=== PATIENT | male | born 1955 | race Caucasian/White ===

== ENCOUNTER 2017-04-11 09:26 | Inpatient (IN) | payer OTHER ==
[2017-04-11] VITALS (9 sets, daily range): BP systolic 108–183; BP diastolic 74–108; PULSE 65–68; RESP 18–19; TEMP 98.5; Ht 162.6 cm; Wt 85.0 kg
[~2017-04-11] VITALS: Ht 162.6 cm; Wt 85.0 kg
[2017-04-11] MEDS ORDERED: ASPIRIN 81 MG TAB PO ONE (10:00)
[2017-04-11] MEDS ORDERED: KETOROLAC 15 MG INJ IV STA (10:00)
--- NOTE | 2017-04-11 10:15 | ERA ---
ER Documentation Chief Complaint Date/Time DATE: 04/11/17 TIME: 10:09 Chief Complaint Pt BIB RA 81 with c/o CP since 0700. HPI 61-year-old man presents with substernal chest pain beginning in the morning lasting for about an hour, resolving spontaneously and then returning while at his doctor's office. Patient did have an SD last year and underwent PCI with stent placement and states the pain today felt similar to previous episodes. He does use nitroglycerin and aspirin at home and with nitroglycerin use today his symptoms improved. He denies dizziness or loss of consciousness, no shortness of breath, no calf or leg swelling, no fevers or chills, no cough. He was referred here by his PMD for evaluation. ROS All systems reviewed and are negative except as per history of present illness. Allergies Allergies: Coded Allergies: No Known Allergy (Unverified , 04/11/17) PMhx/Soc History of SD status post PCI with stent placement 1 year ago, hypertension History of Surgery: No Anesthesia Reaction: No Hx Neurological Disorder: No Hx Respiratory Disorders: No Hx Cardiac Disorders: Yes (CAD-Stent) Hx Psychiatric Problems: No Hx Miscellaneous Medical Probl: Yes (HTN, DM type 2, Cholesterol) Hx Alcohol Use: No Hx Substance Use: No Hx Tobacco Use: No Smoking Status: Former smoker FmHx Family History: No diabetes Physical Exam Vitals Vital Signs Date Time Temp Pulse Resp B/P Pulse Ox O2 Delivery O2 Flow Rate FiO2 04/11/17 09:36 98.5 91 16 129/98 100 Physical Exam GENERAL: Well-developed, well-nourished, well-hydrated, in no apparent distress , looks nontoxic in appearance HEENT: Moist mucous membranes, pink conjunctiva, no cervical spine tenderness or step-off deformities, no goiter, no jaundice or icterus, extraocular movements intact without pain. No submandibular induration, and no pharyngeal erythema NEURO: Alert and oriented 3, cranial nerves II through XII intact bilaterally, pupils equal round reactive to light, no focal deficits or facial asymmetry, sensation intact distally Strength 5/5 in upper and lower extremities bilaterally CARDIAC: Regular rate and rhythm, no murmurs rubs or gallops LUNGS: Clear bilaterally no wheezing crackles or stridor ABDOMEN: Soft nontender, no guarding, no rigidity, no rebound, no psoas sign no obturator sign. Normoactive bowel sounds SKIN: Warm and dry to touch, no abrasions, contusions, or hematomas, no lacerations, no ecchymosis, no target lesions, and without ulcers EXTREMITIES: No clubbing cyanosis or edema, calves are bilaterally symmetrical, no Homans sign, no popliteal cord sign. Distal pulses equal and bilateral PSYCH: Normal affect without agitation or irritability Result Diagram: 04/11/17 0950 Results 24 hrs Laboratory Tests Test 04/11/17 09:50 White Blood Count 6.310^3/ul Red Blood Count 4.7210^6/ul Hemoglobin 13.4g/dl Hematocrit 40.0% Mean Corpuscular Volume 84.7fl Mean Corpuscular Hemoglobin 28.4pg Mean Corpuscular Hemoglobin Concent 33.5g/dl Red Cell Distribution Width 12.4% Platelet Count 01273^3/UL Mean Platelet Volume 9.4fl Neutrophils % 59.5% Lymphocytes % 29.6% Monocytes % 8.4% Eosinophils % 1.6% Basophils % 0.6% Nucleated Red Blood Cells % 0.0/100WBC Neutrophils # 3.710^3/ul Lymphocytes # 1.910^3/ul Monocytes # 0.510^3/ul Eosinophils # 0.110^3/ul Basophils # 0.010^3/ul Nucleated Red Blood Cells # 0.010^3/ul Current Medications Medications (Trade) Dose Ordered Sig/Nereyda Route PRN Reason Start Time Stop Time Status Last Admin Dose Admin Ketorolac Tromethamine (Toradol) 15 mg ONCE STAT IV 04/11/17 10:00 04/11/17 10:01 DC 04/11/17 10:12 Aspirin (Aspirin) 324 mg ONCE ONCE PO 04/11/17 10:00 04/11/17 10:01 DC 04/11/17 10:12 Procedures/MDM IV line was established patient was placed on gynaecological oncologist rhythm strip revealed a sinus rhythm at about 80 bpm with upright P and T waves. Patient was afebrile. EKG performed, read by me revealed a normal sinus rhythm 87 bpm, normal axis, narrow QRS complex, poor R waves in V2 and V3 consistent with old SD, no acute ST changes. Chest X-ray 1V Interpreted by me: Soft Tissue: No acute abnormalities Bones: No acute abnormalities Mediastinum/Cardiac Silhouette/Lungs: No acute abnormalities I administered Toradol 15 mg IV 1 aspirin 324 mg p.o. for cardioprotective measures. CBC and electrolytes were normal, liver function tests were normal, troponin was negative. Patient has a strong cardiac history and given his symptoms today will be admitted to telemetry setting for continued medical management cardiology consultation. Departure Diagnosis: Primary Impression: Chest pain Additional Impression: Hypertension Condition: CARL Tam MD Apr 11, 2017 10:15
[2017-04-11 10:17] LABS: BASOPHILS % 0.6 % (0.0-2.0); EOSINOPHILS # 0.1 10^3/ul (0.0-0.5); EOSINOPHILS % 1.6 % (0.0-7.0); HEMOGLOBIN 13.4 g/dl (14.0-18.0); LYMPHOCYTES # 1.9 10^3/ul (0.8-2.9); LYMPHOCYTES % 29.6 % (15.0-51.0); MEAN CORPUSCULAR HEMOGLOBIN 28.4 pg (29.0-33.0); MEAN CORPUSCULAR HGB CONC 33.5 g/dl (32.0-37.0); MEAN CORPUSCULAR VOLUME 84.7 fl (82.0-101.0); MEAN PLATELET VOLUME 9.4 fl (7.4-10.4); MONOCYTE # 0.5 10^3/ul (0.3-0.9); MONOCYTES % 8.4 % (0.0-11.0); NEUTROPHIL # 3.7 10^3/ul (1.6-7.5); NEUTROPHILS % 59.5 % (39.0-77.0); PLATELET COUNT 316 10^3/UL (140-415); RED BLOOD COUNT 4.72 10^6/ul (4.70-6.10); RED CELL DISTRIBUTION WIDTH 12.4 % (11.5-14.5); WHITE BLOOD COUNT 6.3 10^3/ul (4.8-10.8)
--- NOTE | 2017-04-11 10:24 | RADRPT ---
PROCEDURE: XR Chest. CLINICAL INDICATION: chest pain TECHNIQUE: Single frontal view of the chest was obtained COMPARISON: None FINDINGS: The heart and mediastinum are within normal limits. The lungs are clear. There is no pleural effusion or pneumothorax. RPTAT: AA IMPRESSION: No acute disease. .Devon Perry MD, Date Time Electronically viewed and signed by .Devon Perry MD, on 04/11/2017 10:23 .S/
[2017-04-11 10:42] LABS: ALANINE AMINOTRANSFERASE 29 IU/L (13-69); ALBUMIN 4.4 g/dl (3.3-4.9); ALBUMIN/GLOBULIN RATIO 1.62; ALKALINE PHOSPHATASE 108 IU/L (42-121); ANION GAP 16 (8-16); ASPARTATE AMINO TRANSFERASE 20 IU/L (15-46); BILIRUBIN,INDIRECT 0.1 mg/dl (0-1.1); BILIRUBIN,TOTAL 0.1 mg/dl (0.2-1.3); BLOOD UREA NITROGEN 24 mg/dl (7-20); CALCIUM 9.6 mg/dl (8.4-10.2); CARBON DIOXIDE 24 mmol/L (21-31); CHLORIDE 103 mmol/L (97-110); CREATININE 0.86 mg/dl (0.61-1.24); GLUCOSE 266 mg/dl (70-220); SODIUM 139 mmol/L (135-144); TOTAL PROTEIN 7.1 g/dl (6.1-8.1)
[2017-04-11 11:04] LABS: TROPONIN-I < 0.012 ng/ml (0.00-0.12)
[2017-04-11] MEDS ORDERED: METF-480 PO (12:20)
[2017-04-11] MEDS ORDERED: BENA40TA41 PO (12:20)
[2017-04-11] MEDS ORDERED: AMIT10TA6 PO (12:20)
[2017-04-11] MEDS ORDERED: CLOP75TA27 PO (12:20)
[2017-04-11] MEDS ORDERED: PANT40TA4 PO (12:21)
[2017-04-11] MEDS ORDERED: ATOR40TA68 PO (12:21)
[2017-04-11] MEDS ORDERED: HYDR12.58 PO (12:21)
[2017-04-11] MEDS ORDERED: CARV25TA97 PO (12:22)
[2017-04-11] MEDS ORDERED: GLIM4TAB PO (12:22)
[2017-04-11] MEDS ORDERED: INSU100C SQ (12:22)
[2017-04-11] MEDS ORDERED: LANT3I SC (12:23)
[2017-04-11] MEDS ORDERED: GLUCOSE GEL 15 GRAM TUBE PO PRN ×2 (14:00)
[2017-04-11] MEDS ORDERED: DOCUSATE SODIUM 100 MG CAP PO PRN (14:00)
[2017-04-11] MEDS ORDERED: GLUCAGON 1 MG INJ IM PRN (14:00)
[2017-04-11] MEDS ORDERED: ACETAMINOPHEN 325 MG TAB PO PRN (14:00)
[2017-04-11] MEDS ORDERED: GLUCOSE GEL 15 GRAM TUBE BUCCAL PRN (14:00)
[2017-04-11] MEDS ORDERED: DEXTROSE 50% 50 ML SYRINGE IV PRN ×2 (14:00)
[2017-04-11] MEDS ORDERED: morphine 2 MG INJ IV PRN (14:00)
[2017-04-11] MEDS ORDERED: ACETAMINOPHEN 650 MG SUPP PR PRN (14:00)
[2017-04-11] MEDS ORDERED: NACL 0.9% 3 ML SYG IV SCH (14:00)
[2017-04-11] MEDS ORDERED: ONDANSETRON 4 MG INJ IV PRN (14:00)
[2017-04-11] MEDS ORDERED: hydrALAzine 20 MG INJ IV PRN (14:00)
--- NOTE | 2017-04-11 14:06 | HP ---
Date/Time of Note Date/Time of Note DATE: 04/11/17 TIME: 13:58 Assessment/Plan VTE Prophylaxis VTE Prophylaxis Intervention: LMWH Lines/Catheters IV Catheter Type (from Nrs): Saline Lock Assessment/Plan Assessment/Plan 61-year-old male with a history of coronary artery disease ,status post PCI with stent<1 yo, diabetes, hypertension, who presented to the emergency room for evaluation of left-sided chest pain worsens with exertion. 1. Left-sided chest pain, Exertional , rule out acute coronary syndrome. -Telemetry observation, serial troponins 3, repeat 12-lead EKG and 2D cardiogram. -Aspirin 81 mg, nitro SL PRN, and morphine PRN -Cardiology consult as patient is at high risk. 2. Coronary artery disease, status post PCI with stent placed less than 1 year ago.` -Resume home medications including aspirin, Plavix, statin and antihypertensives. 3. Essential hypertension. -Resume ACEI/BB/HCTZ 4. Dislipidemia. -Resume statin 5. DMII -Check A1c. -Accu-Cheks/ISS/Lantus, titrate as indicated. -Hold oral agents at this time. 6.GERD: -Resume PPI DVT prophylaxis: Lovenox PUD prophylaxis: Protonix PLAN: Monitor patient for recurrence of chest pain if any. Monitor EKG. Patient will be started on a carb controlled diet. Follow-up with LABS. Follow -up with cardiology recommendations. Rest of the management depend on clinical course, further studies and input from [facility] consultant. Approximately 60 minutes was spent on this history and physical. Patient was seen in collaboration with . HPI/ROS Admit Date/Time Admit Date/Time Apr 11, 2017 at 11:51 Hx of Present Illness This is a 61-year-old male with a past medical history of myocardial infarction, PCI with stent placed less than 1 year ago, type 2 diabetes, coronary artery disease, dyslipidemia, hypertension, who presented to the emergency room with complaints of intermittent left-sided chest pain that started 4 days ago. His pain gets aggravated by exertion. There is no radiation of his pain. Patient denied palpitation, shortness of breath, dizziness, nausea, vomiting, abdominal discomfort, cough or other constitutional symptoms. Patient was seen by his primary care doctor and was asked to go to the emergency room. His initial troponin was negative. CBC and BMP within acceptable range. Vital signs within normal limits. A 12-lead EKG with sinus rhythm and nonspecific ST/ T-wave changes. There was no acute ST elevation or T-wave changes. Chest x- ray without any acute cardiopulmonary disease. Patient was given aspirin 324 mg and Toradol 50 mg with some improvement in his pain and was admitted for further evaluation. ROS A 12 point review of system was assessed and is negative other than what is mentioned in HPI. PMH/Family/Social Past Medical History See HPI Past Surgical History See HPI Social History Former smoker who quit 1 year ago. Denies any history of alcohol or illicit drug use. Smoking Status: Former smoker Exam/Review of Systems Vital Signs Vitals Vital Signs Date Time Temp Pulse Resp B/P Pulse Ox O2 Delivery O2 Flow Rate FiO2 04/11/17 12:24 71 20 143/94 99 04/11/17 11:58 98.5 Room Air Exam Exam General: Well developed,adequately built male, not in any acute distress . HEENT: Normocephalic, Atraumatic, No laceration or hematoma; Eyes: PEERL, Conjunctiva clear, Anicteric sclera Neck: Supple without any lymphadenopathy, nontender, no JVD, no carotid bruits, trachea midline, no thyromegaly Cardiac: S1, S2 auscultated, regular rhythm and rate, no mumurs or gallop Pulmonary: Normal respiratory effort. Chest clear to auscultation bilaterally, no adventitious breath sounds GI: Abdomen normal to inspection. Soft, non tender, non- distended, no masses, no rebound tenderness or guarding. Bowel sounds active on all four quadrants Genitourinary: Deferred Extremities: No cyanosis, clubbing, or edema. Pulses [2+] bilaterally. Full ROM on all four extremities. No focal weakness appreciated. Neurologic: Alert to person, place, time, and situation. Affect appropriate, intact sensation. Skin: Clean,dry, and intact. No ecchymosis, no rashes, or lesions Labs Result Diagram: 04/11/17 0950 04/11/17 0950 ANUPAMA SANTAMARIA NP Apr 11, 2017 14:06
[2017-04-11 14:31] LABS: CREATINE KINASE 70 IU/L (23-200)
[2017-04-11 14:44] LABS: CK-MB 0.72 ng/ml (0.0-2.4); TROPONIN-I < 0.012 ng/ml (0.00-0.12)
[2017-04-11] MEDS ORDERED: ASPI-664 PO (15:37)
[2017-04-11] MEDS: INSULIN ASPART [NOVOLOG] 3 ML PEN SC SCH ×2 (17:39→21:00)
--- NOTE | 2017-04-11 19:12 | CONS ---
Date/Time of Note Date/Time of Note DATE: 04/11/17 TIME: 19:11 Assessment/Plan Assessment/Plan Chief Complaint/Hosp Course 1. ACS/ unstable angina 2. HTN 3. DM 4. Dyslipidemia 5. hx CAD 6. HX PCI 7. leg pain: possible PAD REC: ASA/ PLAVIX CONT COREG MAMIE DM control echo tele R/O [place] LHC/ steph possible PCI tomorrow. R./B/A D/W pt and grandson. consent was obtain. will try to get old records THANK YOU. THONG HUERTA MD [facility] Problems: Consultation Date/Type/Reason Admit Date/Time Apr 11, 2017 at 11:51 Date of Consultation: Apr 11, 2017 Type of Consultation: CARDIOLOGY Reason for Consultation CHEST PAIN/ ACS Referring Provider: ANUAPMA SANTAMARIA NP Hx of Present Illness CC: CHEST PAIN HPI: THANK YOU FOR THIS REFERRAL this is a pleasant 61 year old man with history of DM HTN Dyslipidemia , CAD, S/P WA & PCI a year ago who presented with new onset of anterior/ left sided chest pain x 4 days. pain is intermittent, similar to his previous [place] pain and appears to be getting worse with exertion. pt's pain got worse today after walking to his clinic d/w grandson. no chest pain now allergy NKDA Meds reviewed. socia; quit smoking a year ago family hx: denies any early CAD PMH: as above. ROS: + Leg pain. otherwise as above Social History Smoking Status: Former smoker Exam/Review of Systems Vital Signs Vitals Vital Signs Date Time Temp Pulse Resp B/P Pulse Ox O2 Delivery O2 Flow Rate FiO2 04/11/17 16:40 149/86 04/11/17 16:17 65 04/11/17 15:20 97.8 18 100 04/11/17 11:58 Room Air Exam GEN no acute distress HEENT: NCAT. PER NECK NO JVD CV RRR NO m./g/r PULM: CTA B/L no wheezing GI obese soft NT ND EXT Trace LE Edema neuro [id number] NONFOCAL Psych calm and pleasant ECG NSR ant infarct CXR reviewed. Results Result Diagram: 04/11/17 0950 04/11/17 0950 Results 24 hrs Laboratory Tests Test 04/11/17 09:50 04/11/17 14:06 04/11/17 17:39 White Blood Count 6.3 Red Blood Count 4.72 Hemoglobin 13.4 L Hematocrit 40.0 L Mean Corpuscular Volume 84.7 Mean Corpuscular Hemoglobin 28.4 L Mean Corpuscular Hemoglobin Concent 33.5 Red Cell Distribution Width 12.4 Platelet Count 316 Mean Platelet Volume 9.4 Neutrophils % 59.5 Lymphocytes % 29.6 Monocytes % 8.4 Eosinophils % 1.6 Basophils % 0.6 Nucleated Red Blood Cells % 0.0 Neutrophils # 3.7 Lymphocytes # 1.9 Monocytes # 0.5 Eosinophils # 0.1 Basophils # 0.0 Nucleated Red Blood Cells # 0.0 Sodium Level 139 Potassium Level 4.0 Chloride Level 103 Carbon Dioxide Level 24 Anion Gap 16 Blood Urea Nitrogen 24 H Creatinine 0.86 Glucose Level 266 H Calcium Level 9.6 Total Bilirubin 0.1 L Direct Bilirubin 0.00 Indirect Bilirubin 0.1 Aspartate Amino Transf (AST/SGOT) 20 Alanine Aminotransferase (ALT/SGPT) 29 Alkaline Phosphatase 108 Troponin I < 0.012 < 0.012 Total Protein 7.1 Albumin 4.4 Globulin 2.70 Albumin/Globulin Ratio 1.62 Lipase 36 Creatine Kinase 70 Creatine Kinase Index 1.0 Creatinine Kinase MB (Mass) 0.72 Bedside Glucose 136 Medications Medications Current Medications Ondansetron HCl (Zofran Inj) 4 mg Q6H PRN IV NAUSEA AND/OR VOMITING; Start at 14:00 Acetaminophen (Tylenol Tab) 650 mg Q6H PRN PO PAIN LEVEL 1-3 OR FEVER; Start at 14:00 Acetaminophen (Tylenol Supp) 650 mg Q6H PRN IN PAIN LEVEL 1-3 OR FEVER; Start 04/11/17 at 14:00 Morphine Sulfate (morphine) 2 mg Q4H PRN IV SEVERE PAIN LEVEL 7-10; Start 04/11 at 14:00 Docusate Sodium (Colace) 100 mg Q12H PRN PO CONSTIPATION; Start 04/11/17 at 14: 00 Enoxaparin Sodium (Lovenox) 40 mg DAILY SC ; Start 04/12/17 at 09:00 Atorvastatin Calcium (Lipitor) 40 mg QHS PO ; Start 04/11/17 at 21:00 Benazepril HCl (Lotensin) 40 mg DAILY PO ; Start 04/12/17 at 09:00 Carvedilol (Coreg) 25 mg BID PO ; Start 04/11/17 at 21:00 Clopidogrel Bisulfate (plaVIX) 75 mg DAILY PO ; Start 04/12/17 at 09:00 Hydrochlorothiazide (Hydrochlorothiazide) 12.5 mg DAILY PO ; Start 04/12/17 at 09:00 Diagnostic Test (Pha) (Accu-Chek) 1 ea 02 XX ; Start 04/12/17 at 02:00 Insulin Glargine (Lantus) 21 unit DAILY@08 SC ; Start 04/12/17 at 08:00 Miscellaneous Information 1 ea NOTE XX ; Start 04/11/17 at 14:00 Glucose (Glutose) 15 gm Q15M PRN PO DECREASED GLUCOSE; Start 04/11/17 at 14:00 Glucose (Glutose) 22.5 gm Q15M PRN PO DECREASED GLUCOSE; Start 04/11/17 at 14: 00 Dextrose (D50w Syringe) 25 ml Q15M PRN IV DECREASED GLUCOSE; Start 04/11/17 at 14:00 Dextrose (D50w Syringe) 50 ml Q15M PRN IV DECREASED GLUCOSE; Start 04/11/17 at 14:00 Glucagon (Glucagen) 1 mg Q15M PRN IM DECREASED GLUCOSE; Start 04/11/17 at 14:00 Glucose (Glutose) 15 gm Q15M PRN BUCCAL DECREASED GLUCOSE; Start 04/11/17 at 14 :00 Hydralazine HCl (Apresoline) 10 mg Q6H PRN IV SBP>170; Start 04/11/17 at 14:00 Aspirin (Halfprin) 81 mg DAILY PO ; Start 04/12/17 at 09:00 THONG HUERTA MD Apr 11, 2017 19:12
[2017-04-11] MEDS: ENOXAPARIN 40 MG/0.4 ML SYG SC SCH (19:33)
[2017-04-11 20:18] LABS: CREATINE KINASE 72 IU/L (23-200)
--- NOTE | 2017-04-11 20:27 | RADRPT ---
Echocardiogram Report Patient Name: ELSY GOMEZ Gender: Male Date: 1955 Study Date: 11-Apr-2017 Deposit Refund Clerk: Mustapha Mancilla [facility] Location: [facility] Ref. Physician: ANUPAMA SANTAMARIA Quality: Good Procedures: Transthoracic echocardiogram with complete 2D, M-Mode, and doppler examination. Indications: Chest Pain. 2D/M Mode Doppler Measurement Value Normal Ranges Measurement Value Normal Ranges LVIDd 2D 4.7 3.5 - 5.6 cm AV Peak Karl 1.2 m/sec LVIDs 2D 2.5 2.1 - 4.1 cm AV Peak PG 6.0 mmHg LVPWd 2D 1.2 0.6 - 1.1 cm LVOT Peak Karl 0.9 m/sec IVSd 2D 1.2 0.6 - 1.1 cm LVOT Peak PG 3.3 mmHg AoR Diam 2D 3.1 2.0 - 3.7 cm MV E Peak Karl 0.8 m/sec EDV 2D 103.2 cm3 MV A Peak Karl 0.9 m/sec ESV 2D 16.0 cm3 MV E/A 0.8 LA Dimen 2D 3.3 2.3 - 4.0 cm MV Decel Time 165 msec MV Decel [place] 5 MV E/A 0.8 TR Peak Karl 2.0 m/sec TR Peak PG 15.2 mmHg RVSP 18.0 mmHg Findings Left Ventricle: Lower limits of normal systolic function. Normal left ventricular cavity size. Mild concentric left ventricular hypertrophy. Ejection fraction is visually estimated at 50 %. Tissue Doppler/Mitral Doppler indices are consistent with impaired relaxation (Stage I diastolic dysfunction). Multiple segmental wall motion abnormalities. These segments of the LV are hypokinetic mid anterior segment, apical anterior segment and apical septum. Right Ventricle: Normal right ventricular size. Normal right ventricular systolic function. Left Atrium: The left atrium is normal in size. Right Atrium: The right atrium is normal in size. Mitral Valve: Mitral valve leaflets appear mildly thickened. Mild mitral annular calcification. Trace mitral regurgitation. Aortic Valve: Normal appearance of the aortic valve. No significant aortic stenosis or insufficiency. Tricuspid Valve: Normal appearance of the tricuspid valve. Estimated peak PA systolic pressure 18 mmHg. There is trace tricuspid regurgitation. Pulmonic Valve: Normal pulmonic valve appearance. Pericardium: Normal pericardium with no significant pericardial effusion. Aorta: Normal aortic root. IVC: Normal size and normal respiratory collapse consistent with normal right atrial pressure. Conclusions 1.Lower limits of normal systolic function. Normal left ventricular cavity size. Mild concentric left ventricular hypertrophy. Ejection fraction is visually estimated at 50 %. Tissue Doppler/Mitral Doppler indices are consistent with impaired relaxation (Stage I diastolic dysfunction). Multiple segmental wall motion abnormalities. These segments of the LV are hypokinetic mid anterior segment, apical anterior segment. and apical septum. 2.Mitral valve leaflets appear mildly thickened. Mild mitral annular calcification. Trace mitral regurgitation. 3.Normal appearance of the aortic valve. No significant aortic stenosis or insufficiency. 4.Normal appearance of the tricuspid valve. Estimated peak PA systolic pressure 18 mmHg. There is trace tricuspid regurgitation. Electronically Signed By: Jose Bazzi 11-Apr-2017 20:26:24 -0700 Patient Name: ELSY GOMEZ Study Date: 11-Apr-2017 [id number]
[2017-04-11 20:30] LABS: TROPONIN-I < 0.012 ng/ml (0.00-0.12)
[2017-04-11] MEDS: ATORVASTATIN 40 MG TAB PO SCH (21:14)
[2017-04-11] MEDS: ACCU-CHEK XX SCH (21:15)
[2017-04-12] VITALS (22 sets, daily range): BP systolic 120–164; BP diastolic 79–108; PULSE 64–84; RESP 7–20
[2017-04-12] MEDS ORDERED: ACCU-CHEK XX SCH (02:00)
[2017-04-12 08:20] LABS: BASOPHIL # 0.1 10^3/ul (0.0-0.1); EOSINOPHILS # 0.1 10^3/ul (0.0-0.5); EOSINOPHILS % 2.2 % (0.0-7.0); HEMATOCRIT 40.1 % (42.0-52.0); HEMOGLOBIN 13.7 g/dl (14.0-18.0); LYMPHOCYTES # 1.7 10^3/ul (0.8-2.9); LYMPHOCYTES % 34.1 % (15.0-51.0); MEAN CORPUSCULAR HEMOGLOBIN 29.3 pg (29.0-33.0); MEAN CORPUSCULAR HGB CONC 34.2 g/dl (32.0-37.0); MEAN CORPUSCULAR VOLUME 85.7 fl (82.0-101.0); MEAN PLATELET VOLUME 9.2 fl (7.4-10.4); MONOCYTE # 0.5 10^3/ul (0.3-0.9); MONOCYTES % 10.8 % (0.0-11.0); NEUTROPHIL # 2.5 10^3/ul (1.6-7.5); NEUTROPHILS % 51.7 % (39.0-77.0); PLATELET COUNT 315 10^3/UL (140-415); RED BLOOD COUNT 4.68 10^6/ul (4.70-6.10); RED CELL DISTRIBUTION WIDTH 12.3 % (11.5-14.5); WHITE BLOOD COUNT 4.9 10^3/ul (4.8-10.8)
[2017-04-12] MEDS: BENAZEPRIL 40 MG TAB PO SCH (08:27)
[2017-04-12] MEDS: ASPIRIN (EC) 81 MG TAB PO SCH (08:27)
[2017-04-12] MEDS: HYDROCHLOROTHIAZIDE 12.5 MG CAP PO SCH (08:28)
[2017-04-12] MEDS: INSULIN GLARGINE [LANtus] 3 ML PEN SC SCH (08:29)
[2017-04-12] MEDS: INSULIN ASPART [NOVOLOG] 3 ML PEN SC SCH ×6 (08:30→21:08)
[2017-04-12] MEDS: CLOPIDOGREL 75 MG TAB PO SCH (08:34)
[2017-04-12] MEDS: PANTOPRAZOLE (EC) 40 MG TAB PO SCH (08:34)
[2017-04-12 08:39] LABS: CREATINE KINASE 59 IU/L (23-200)
[2017-04-12 08:51] LABS: ALBUMIN 3.9 g/dl (3.3-4.9); ALBUMIN/GLOBULIN RATIO 1.62; BILIRUBIN,INDIRECT 0.4 mg/dl (0-1.1); BILIRUBIN,TOTAL 0.4 mg/dl (0.2-1.3); CALCIUM 9.3 mg/dl (8.4-10.2); CHOL/HDL RATIO 2.6 RATIO; CREATININE 0.89 mg/dl (0.61-1.24); MAGNESIUM 1.8 mg/dl (1.7-2.5); PHOSPHORUS 3.7 mg/dl (2.5-4.9); POTASSIUM 4.1 mmol/L (3.5-5.1); TOTAL PROTEIN 6.3 g/dl (6.1-8.1)
[2017-04-12 08:59] LABS: TROPONIN-I < 0.012 ng/ml (0.00-0.12)
[2017-04-12 09:00] LABS: CK-MB 0.58 ng/ml (0.0-2.4)
--- NOTE | 2017-04-12 11:03 | PN ---
Date/Time of Note Date/Time of Note DATE: 04/12/17 TIME: 10:57 Assessment/Plan VTE Prophylaxis VTE Prophylaxis Intervention: LMWH Lines/Catheters IV Catheter Type (from Nrs): Peripheral IV Urinary Cath still in place: No Assessment/Plan Chief Complaint/Hosp Course 61-year-old male with a history of coronary artery disease ,status post PCI with stent<1 yo, diabetes, hypertension, who presented to the emergency room for evaluation of left-sided chest pain worsens with exertion. 1. Left-sided chest pain, Exertional , rule out acute coronary syndrome.Trops/ EKG stable.Echo with EF 50% -Continue Aspirin 81 mg, nitro SL PRN, and morphine PRN -Plan for [facility] by Cardiology colleagues 2. Coronary artery disease, status post PCI with stent placed less than 1 year ago.` -on aspirin, Plavix, statin and antihypertensives. 3. Essential hypertension.Stable. -On ACEI/BB/HCTZ 4. Dislipidemia. -On statin 5. DMII-With hyperglycemia. -F/u A1c. -Start premeal Aspart 7unit TID, Continue Accu-Cheks/ISS/Lantus, titrate as indicated. -Continue to hold oral agents at this time. 6.GERD: -on PPI 7.Headache,mild-Likely 2/2 vasodilatory effect from meds. Tylenol PRN-Consider CT/MRI studies if no improvement. DVT prophylaxis: Lovenox PUD prophylaxis: Protonix PLAN:F/u with cards recommendations. Patient was seen in collaboration with . Problems: Subjective 24 Hr Interval Summary Free Text/Dictation Patient complaints of headache. No chest pain/SOB/Palpitation/Dizziness. Exam/Review of Systems Vital Signs Vitals Vital Signs Date Time Temp Pulse Resp B/P Pulse Ox O2 Delivery O2 Flow Rate FiO2 04/12/17 08:00 75 04/12/17 07:15 97.8 18 136/89 99 04/11/17 11:58 Room Air Intake and Output 04/11/17 04/11/17 04/12/17 15:00 23:00 07:00 Intake Total 420 ml 300 ml Balance 420 ml 300 ml Exam General: Well developed,adequately built male, not in any acute distress . HEENT: Normocephalic, Atraumatic, No laceration or hematoma; Eyes: PEERL, Conjunctiva clear, Anicteric sclera Neck: Supple without any lymphadenopathy, nontender, no JVD, no carotid bruits, trachea midline, no thyromegaly Cardiac: S1, S2 auscultated, regular rhythm and rate, no mumurs or gallop Pulmonary: Normal respiratory effort. Chest clear to auscultation bilaterally, no adventitious breath sounds GI: Abdomen normal to inspection. Soft, non tender, non- distended, no masses, no rebound tenderness or guarding. Bowel sounds active on all four quadrants Genitourinary: Deferred Extremities: No cyanosis, clubbing, or edema. Pulses [2+] bilaterally. Full ROM on all four extremities. No focal weakness appreciated. Neurologic: Alert to person, place, time, and situation. Affect appropriate, intact sensation. Skin: Clean,dry, and intact. No ecchymosis, no rashes, or lesions Results Result Diagram: 04/12/17 0722 04/12/17 0723 Results 24 hrs Laboratory Tests Test 04/11/17 14:06 04/11/17 17:39 04/11/17 19:49 04/11/17 21:08 Creatine Kinase 70 72 Creatine Kinase Index 1.0 1.0 Creatinine Kinase MB (Mass) 0.72 0.70 Troponin I < 0.012 < 0.012 Bedside Glucose 136 180 Test 04/12/17 07:22 04/12/17 07:23 04/12/17 07:58 White Blood Count 4.9 # Red Blood Count 4.68 L Hemoglobin 13.7 L Hematocrit 40.1 L Mean Corpuscular Volume 85.7 Mean Corpuscular Hemoglobin 29.3 Mean Corpuscular Hemoglobin Concent 34.2 Red Cell Distribution Width 12.3 Platelet Count 315 Mean Platelet Volume 9.2 Neutrophils % 51.7 Lymphocytes % 34.1 Monocytes % 10.8 Eosinophils % 2.2 Basophils % 1.0 Nucleated Red Blood Cells % 0.0 Neutrophils # 2.5 Lymphocytes # 1.7 Monocytes # 0.5 Eosinophils # 0.1 Basophils # 0.1 Nucleated Red Blood Cells # 0.0 Creatine Kinase 59 Creatine Kinase Index 1.0 Creatinine Kinase MB (Mass) 0.58 Troponin I < 0.012 B-Type Natriuretic Peptide 114 Sodium Level 138 Potassium Level 4.1 Chloride Level 102 Carbon Dioxide Level 29 Anion Gap 11 Blood Urea Nitrogen 20 Creatinine 0.89 Glucose Level 237 H Calcium Level 9.3 Phosphorus Level 3.7 Magnesium Level 1.8 Total Bilirubin 0.4 Direct Bilirubin 0.00 Indirect Bilirubin 0.4 Aspartate Amino Transf (AST/SGOT) 20 Alanine Aminotransferase (ALT/SGPT) 28 Alkaline Phosphatase 77 Total Protein 6.3 Albumin 3.9 Globulin 2.40 Albumin/Globulin Ratio 1.62 Triglycerides Level 139 Cholesterol Level 90 L LDL Cholesterol, Calculated 28 HDL Cholesterol 34 Cholesterol/HDL Ratio 2.6 Thyroid Stimulating Hormone (TSH) Pending Bedside Glucose 263 H Medications Medications Current Medications Ondansetron HCl (Zofran Inj) 4 mg Q6H PRN IV NAUSEA AND/OR VOMITING; Start at 14:00 Acetaminophen (Tylenol Tab) 650 mg Q6H PRN PO PAIN LEVEL 1-3 OR FEVER; Start at 14:00 Acetaminophen (Tylenol Supp) [address] PAIN LEVEL 1-3 OR FEVER; Start 04/11/17 at 14:00 Morphine Sulfate (morphine) 2 mg Q4H PRN IV SEVERE PAIN LEVEL 7-10 Last administered on 04/12/17 08:26; Admin Dose 2 MG; Start 04/11/17 at 14:00 Docusate Sodium (Colace) 100 mg Q12H PRN PO CONSTIPATION; Start 04/11/17 at 14: 00 Enoxaparin Sodium (Lovenox) 40 mg DAILY SC ; Start 04/12/17 at 09:00 Atorvastatin Calcium (Lipitor) 40 mg QHS PO Last administered on 04/11/17 21: 14; Admin Dose 40 MG; Start 04/11/17 at 21:00 Benazepril HCl (Lotensin) 40 mg DAILY PO Last administered on 04/12/17 08:27; Admin Dose 40 MG; Start 04/12/17 at 09:00 Carvedilol (Coreg) 25 mg BID PO Last administered on 04/12/17 08:28; Admin Dose 25 MG; Start 04/11/17 at 21:00 Clopidogrel Bisulfate (plaVIX) 75 mg DAILY PO Last administered on 04/12/17 08 :34; Admin Dose 75 MG; Start 04/12/17 at 09:00 Hydrochlorothiazide (Hydrochlorothiazide) 12.5 mg DAILY PO Last administered on 04/12/17 08:28; Admin Dose 12.5 MG; Start 04/12/17 at 09:00 Diagnostic Test (Pha) (Accu-Chek) 1 ea 02 XX ; Start 04/12/17 at 02:00 Insulin Glargine (Lantus) 21 unit DAILY@08 SC Last administered on 04/12/17 08 :29; Admin Dose 21 UNIT; Start 04/12/17 at 08:00 Miscellaneous Information 1 ea NOTE XX ; Start 04/11/17 at 14:00 Glucose (Glutose) 15 gm Q15M PRN PO DECREASED GLUCOSE; Start 04/11/17 at 14:00 Glucose (Glutose) 22.5 gm Q15M PRN PO DECREASED GLUCOSE; Start 04/11/17 at 14: 00 Dextrose (D50w Syringe) 25 ml Q15M PRN IV DECREASED GLUCOSE; Start 04/11/17 at 14:00 Dextrose (D50w Syringe) 50 ml Q15M PRN IV DECREASED GLUCOSE; Start 04/11/17 at 14:00 Glucagon (Glucagen) 1 mg Q15M PRN IM DECREASED GLUCOSE; Start 04/11/17 at 14:00 Glucose (Glutose) 15 gm Q15M PRN BUCCAL DECREASED GLUCOSE; Start 04/11/17 at 14 :00 Hydralazine HCl (Apresoline) 10 mg Q6H PRN IV SBP>170; Start 04/11/17 at 14:00 Aspirin (Halfprin) 81 mg DAILY PO Last administered on 04/12/17 08:27; Admin Dose 81 MG; Start 04/12/17 at 09:00 ANUPAMA SANTAMARIA NP Apr 12, 2017 11:03
[2017-04-12] MEDS: HYDROCODONE/APAP (5/325) TAB PO PRN ×2 (11:22→17:27)
[2017-04-12 12:45] LABS: THYROID STIMULATING HORMONE 1.27 MIU/L (0.465-4.680)
[2017-04-12] MEDS ORDERED: HEPARIN 1000 UNITS/NS (A-LINE) 1,000 ML ONE (12:57)
[2017-04-12] MEDS ORDERED: LIDOCAINE 1% (MDV) 20 ML INJ ONE (12:57)
[2017-04-12] MEDS ORDERED: IODIXANOL LOCM 100 ML BTL ONE (12:57)
[2017-04-12] MEDS ORDERED: FENTAnyl 50 MCG/ML VIAL ONE (12:58)
[2017-04-12] MEDS ORDERED: MIDAZOLAM 1 MG/ML 2 ML INJ ONE (12:58)
[2017-04-12] MEDS ORDERED: NITROGLYCERIN (IC) 100 MCG/ML INJ ONE (13:53)
[2017-04-12] MEDS ORDERED: ADENOSINE 90 MG in SOD CHLORIDE 0.9% 90 ML IV SCH (14:00)
--- NOTE | 2017-04-12 14:34 | CONS ---
Date/Time of Note Date/Time of Note DATE: 04/12/17 TIME: 14:29 Consult Date/Type/Reason Admit Date/Time Apr 11, 2017 at 11:51 Initial Consult Date 04/11/17 Type of Consultation: CARDIOLOGY Ordering Provider: ANUPAMA SANTAMARIA V. 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 pt with mild chest pain last night which has resolved now. OBJECTIVE: General: no acute distress HEENT: NC/AT. pupils are equal. round. NECK: NO JVD. no stridor. CV: RRR. systolic murmur; no gallop or rubs. PULM: no wheezing or rhonchi. GI: SOFT, NT, ND, no rebound or guarding Extremity: trace B/L LE edema. no clubbing. neuro: awake and alert, OX3. Psych: calm and pleasant rectal: deferred : normal Objective Vital Signs Date Time Temp Pulse Resp B/P Pulse Ox O2 Delivery O2 Flow Rate FiO2 04/12/17 12:00 74 04/12/17 11:20 98.5 18 148/85 100 04/11/17 11:58 Room Air Intake and Output 04/11/17 04/11/17 04/12/17 15:00 23:00 07:00 Intake Total 420 ml 300 ml Balance 420 ml 300 ml Results/Medications Result Diagram: 04/12/1772104/12/17 0723 Results 24 hrs Laboratory Tests Test 04/11/17 17:39 04/11/17 19:49 04/11/17 21:08 04/12/17 07:22 Bedside Glucose 136 180 Creatine Kinase 72 59 Creatine Kinase Index 1.0 1.0 Creatinine Kinase MB (Mass) 0.70 0.58 Troponin I < 0.012 < 0.012 White Blood Count 4.9 # Red Blood Count 4.68 L Hemoglobin 13.7 L Hematocrit 40.1 L Mean Corpuscular Volume 85.7 Mean Corpuscular Hemoglobin 29.3 Mean Corpuscular Hemoglobin Concent 34.2 Red Cell Distribution Width 12.3 Platelet Count 315 Mean Platelet Volume 9.2 Neutrophils % 51.7 Lymphocytes % 34.1 Monocytes % 10.8 Eosinophils % 2.2 Basophils % 1.0 Nucleated Red Blood Cells % 0.0 Neutrophils # 2.5 Lymphocytes # 1.7 Monocytes # 0.5 Eosinophils # 0.1 Basophils # 0.1 Nucleated Red Blood Cells # 0.0 Hemoglobin A1c 10.7 H B-Type Natriuretic Peptide 114 Test 04/12/17 07:23 04/12/17 07:58 04/12/17 11:51 Sodium Level 138 Potassium Level 4.1 Chloride Level 102 Carbon Dioxide Level 29 Anion Gap 11 Blood Urea Nitrogen 20 Creatinine 0.89 Glucose Level 237 H Calcium Level 9.3 Phosphorus Level 3.7 Magnesium Level 1.8 Total Bilirubin 0.4 Direct Bilirubin 0.00 Indirect Bilirubin 0.4 Aspartate Amino Transf (AST/SGOT) 20 Alanine Aminotransferase (ALT/SGPT) 28 Alkaline Phosphatase 77 Total Protein 6.3 Albumin 3.9 Globulin 2.40 Albumin/Globulin Ratio 1.62 Triglycerides Level 139 Cholesterol Level 90 L LDL Cholesterol, Calculated 28 HDL Cholesterol 34 Cholesterol/HDL Ratio 2.6 Thyroid Stimulating Hormone (TSH) 1.270 Bedside Glucose 263 H 161 Medications Current Medications Ondansetron HCl (Zofran Inj) 4 mg Q6H PRN IV NAUSEA AND/OR VOMITING; Start at 14:00 Acetaminophen (Tylenol Tab) 650 mg Q6H PRN PO PAIN LEVEL 1-3 OR FEVER; Start at 14:00 Acetaminophen (Tylenol Supp) 650 mg Q6H PRN [place] PAIN LEVEL 1-3 OR FEVER; Start 04/11/17 at 14:00 Morphine Sulfate (morphine) 2 mg Q4H PRN IV SEVERE PAIN LEVEL 7-10 Last administered on 04/12/17 08:26; Admin Dose 2 MG; Start 04/11/17 at 14:00 Docusate Sodium (Colace) 100 mg Q12H PRN PO CONSTIPATION; Start 04/11/17 at 14: 00 Enoxaparin Sodium (Lovenox) 40 mg DAILY SC ; Start 04/12/17 at 09:00 Atorvastatin Calcium (Lipitor) 40 mg QHS PO Last administered on 04/11/17 21: 14; Admin Dose 40 MG; Start 04/11/17 at 21:00 Benazepril HCl (Lotensin) 40 mg DAILY PO Last administered on 04/12/17 08:27; Admin Dose 40 MG; Start 04/12/17 at 09:00 Carvedilol (Coreg) 25 mg BID PO Last administered on 04/12/17 08:28; Admin Dose 25 MG; Start 04/11/17 at 21:00 Clopidogrel Bisulfate (plaVIX) 75 mg DAILY PO Last administered on 04/12/17 08 :34; Admin Dose 75 MG; Start 04/12/17 at 09:00 Hydrochlorothiazide (Hydrochlorothiazide) 12.5 mg DAILY PO Last administered on 04/12/17 08:28; Admin Dose 12.5 MG; Start 04/12/17 at 09:00 Diagnostic Test (Pha) (Accu-Chek) 1 ea 02 XX ; Start 04/12/17 at 02:00 Insulin Glargine (Lantus) 21 unit DAILY@08 SC Last administered on 04/12/17 08 :29; Admin Dose 21 UNIT; Start 04/12/17 at 08:00 Miscellaneous Information 1 ea NOTE XX ; Start 04/11/17 at 14:00 Glucose (Glutose) 15 gm Q15M PRN PO DECREASED GLUCOSE; Start 04/11/17 at 14:00 Glucose (Glutose) 22.5 gm Q15M PRN PO DECREASED GLUCOSE; Start 04/11/17 at 14: 00 Dextrose (D50w Syringe) 25 ml Q15M PRN IV DECREASED GLUCOSE; Start 04/11/17 at 14:00 Dextrose (D50w Syringe) 50 ml Q15M PRN IV DECREASED GLUCOSE; Start 04/11/17 at 14:00 Glucagon (Glucagen) 1 mg Q15M PRN IM DECREASED GLUCOSE; Start 04/11/17 at 14:00 Glucose (Glutose) 15 gm Q15M PRN BUCCAL DECREASED GLUCOSE; Start 04/11/17 at 14 :00 Hydralazine HCl (Apresoline) 10 mg Q6H PRN IV SBP>170; Start 04/11/17 at 14:00 Aspirin (Halfprin) 81 mg DAILY PO Last administered on 04/12/17 08:27; Admin Dose 81 MG; Start 04/12/17 at 09:00 Acetaminophen/ Hydrocodone Bitart 1 tab 1 tab Q4H PRN PO pain Last administered on 04/12/17 11:22; Admin Dose 1 TAB; Start 04/12/17 at 11:00 Adenosine/Sodium Chloride (Adenoscan/NS) 90 ml @ mls/hr INTRA-PROCEDURE IV ; Start 04/12/17 at 14:00; Stop 04/12/17 at 18:00 Assessment/Plan Chief Complaint/Hosp Course 1. ACS/ unstable angina 2. HTN 3. DM 4. Dyslipidemia 5. hx CAD 6. HX PCI 7. leg pain: possible PAD REC: ASA/ PLAVIX CONT COREG MAMIE DM control echo REVIEWED. tele steph angio done today with FFR shows moderate lesion in LAD but not hemodynamically significant. will recommend medical therapy dc planning tomorrow am THANK YOU. THONG HUERTA MD FAC Problems: THONG HUERTA MD Apr 12, 2017 14:34
[2017-04-12] MEDS ORDERED: SOD CHLORIDE 0.9% 1,000 ML IV SCH (14:35)
--- NOTE | 2017-04-12 14:43 | OPR ---
Date/Time of Note Date/Time of Note DATE: 04/12/17 TIME: 14:36 Operative Report Procedure Date: Apr 12, 2017 Surgeon see signature line Operative\Procedure Findings Procedure performed: 1. Left heart catheterization, selective right and left coronary angiogram 2. right femoral angiogram 3. moderate sedation for more than 90 minutes. 4. FFR measurement of LAD 5. Supervision of moderate sedation for more than 90 minute Director Community Organization: Thong Bazzi MD Indication:: angina. CAD Findin. Left main coronary artery: Is very short and basically dual ostium. 2. Left anterior descending artery: Its a moderate size vessel and goes around the apex. It has 10% stenosis in the proximal stent, and 60-70% stenosis of the mid LAD (FFR was 0.81-0.90 which was is not considered hemodynamically significant lesion). . 3. Left circumflex artery: Is nondominant and very small with no significant stenosis. 4. Right coronary artery: Is a large tortuous and dominant vessel. It has no significant stenosis. 5. RI: is large and normal LV pressure: 137/10; no Aortic gradient by pull back Written informed consent with obtained after risks benefits and alternatives discussed with the patient in detail. risks including but not limited to risk of infection vascular complications, bleeding complications, VA stroke arrhythmia renal failure at even were discussed with the patient in detail. Patient was brought into the cardiac cathode builder and placed in supine position. Right and left groin area was prepped and draped in regular sterile fashion and then he was in anesthetized using 1% lidocaine. Right femoral artery was cannulated and using modified seldinger technique a 6 Divehi sheath was placed in the right femoral artery. Right femoral angiogram was performed. JL4 catheter was advanced but could not be engaged into the left main coronary artery due to severely tortuous aorta. The JR4 catheter was advanced and engaged right coronary artery angiographic view was obtained. Then I used a JL 5 catheter was advanced and engaged into the left main coronary artery. Angiographic view was obtained. However it is selectively engaged into the left circumflex artery. Then I used a JL 4.5 catheter which was advanced and engaged the left main coronary artery into the LAD and angiography fluid was obtained. Intracoronary nitroglycerin was given angiogram was obtained. At this time was decided to do a FFR of the LAD Pigtail was advanced to engage the left ventricle hemodynamics as recorded by pullback aortic pressure was measured. Angiomax was started. JL 4.5 guiding catheter was advanced and engaged the left main coronary artery. FFR wire was advanced and crossed the lesion. FFR measurement was done with IV adenosine. It was measured to be 0.81-0.9. Catheter and guidewire were removed after final angiogram was obtained. Patient tolerated procedure well with no complication. Patient is to be transferred to recovery room in stable condition. Conclusions: Moderate but not hemodynamically significant obstructive coronary artery disease Recommendations: Medical therapy THONG BAZZI MD Apr 12, 2017 14:43
[2017-04-12] MEDS ORDERED: morphine 10 MG INJ ONE (16:14)
[2017-04-12] MEDS: ATORVASTATIN 40 MG TAB PO SCH (21:06)
[2017-04-13 00:09] VITALS: PULSE 85
--- NOTE | 2017-04-13 00:14 | RADRPT ---
Vent Rate: 79 bpm RR Interval: 0 msec [place] Interval: 178 msec QRS Duration: 86 msec QT Interval: 404 msec QTC Interval: 463 msec P-R-T [place]: 60 - 5 - 0 degrees Normal sinus rhythm Septal infarct , age undetermined T wave abnormality, consider lateral ischemia Abnormal ECG Electronically Signed By: Silverio Olmedo [id number]
[2017-04-13] MEDS: ACCU-CHEK XX SCH (02:00)
[2017-04-13 03:54] VITALS: BP 119/81; RESP 19
[2017-04-13 04:09] VITALS: PULSE 83
[2017-04-13] MEDS: PANTOPRAZOLE (EC) 40 MG TAB PO SCH (05:44)
[2017-04-13 07:22] VITALS: BP 159/53; RESP 18
[2017-04-13 08:18] LABS: BASOPHIL # 0.1 10^3/ul (0.0-0.1); BASOPHILS % 0.8 % (0.0-2.0); EOSINOPHILS # 0.1 10^3/ul (0.0-0.5); EOSINOPHILS % 0.9 % (0.0-7.0); HEMATOCRIT 38.9 % (42.0-52.0); HEMOGLOBIN 13.1 g/dl (14.0-18.0); LYMPHOCYTES # 1.7 10^3/ul (0.8-2.9); LYMPHOCYTES % 27.2 % (15.0-51.0); MEAN CORPUSCULAR HEMOGLOBIN 28.5 pg (29.0-33.0); MEAN CORPUSCULAR HGB CONC 33.7 g/dl (32.0-37.0); MEAN CORPUSCULAR VOLUME 84.6 fl (82.0-101.0); MEAN PLATELET VOLUME 9.2 fl (7.4-10.4); MONOCYTE # 0.6 10^3/ul (0.3-0.9); NEUTROPHIL # 3.9 10^3/ul (1.6-7.5); NEUTROPHILS % 60.9 % (39.0-77.0); PLATELET COUNT 315 10^3/UL (140-415); RED CELL DISTRIBUTION WIDTH 12.6 % (11.5-14.5); WHITE BLOOD COUNT 6.3 10^3/ul (4.8-10.8)
[2017-04-13] MEDS: ASPIRIN (EC) 81 MG TAB PO SCH (08:23)
[2017-04-13] MEDS: CLOPIDOGREL 75 MG TAB PO SCH (08:23)
[2017-04-13] MEDS: BENAZEPRIL 40 MG TAB PO SCH (08:23)
--- NOTE | 2017-04-13 08:23 | CONS ---
Date/Time of Note Date/Time of Note DATE: 04/13/17 TIME: 08:21 Consult Date/Type/Reason Admit Date/Time Apr 11, 2017 at 11:51 Initial Consult Date 04/11/17 Type of Consultation: CARDIOLOGY Ordering Provider: ANUPAMA SANTAMARIA NP Subjective dw staff. rhythm was reviewed. pt remains in NSR. pt with NO MORE chest pain or pressure his ECHEVARRIA is much better now OBJECTIVE: General: no acute distress HEENT: NC/AT. pupils are equal. round. NECK: NO JVD. no stridor. CV: RRR. systolic murmur; no gallop or rubs. PULM: no wheezing or rhonchi. GI: SOFT, NT, ND, no rebound or guarding Extremity: trace B/L LE edema. no clubbing. neuro: awake and alert, OX3. Psych: calm and pleasant rectal: deferred vascular: R fem no bleeding hematoma or bruit Objective Vital Signs Date Time Temp Pulse Resp B/P Pulse Ox O2 Delivery O2 Flow Rate FiO2 04/13/17 07:22 97.8 85 18 159/53 96 04/11/17 11:58 Room Air Intake and Output 04/12/17 04/12/17 04/13/17 15:00 23:00 07:00 Intake Total 120 ml 450 ml Output Total 820 ml 500 ml Balance -700 ml -50 ml Results/Medications Result Diagram: 04/13/17 0728 04/12/17 0723 Results 24 hrs Laboratory Tests Test 04/12/17 11:51 04/12/17 17:33 04/12/17 20:07 04/13/17 01:30 Bedside Glucose 161 140 285 H 304 H Test 04/13/17 07:28 04/13/17 08:00 White Blood Count 6.3 # Red Blood Count 4.60 L Hemoglobin 13.1 L Hematocrit 38.9 L Mean Corpuscular Volume 84.6 Mean Corpuscular Hemoglobin 28.5 L Mean Corpuscular Hemoglobin Concent 33.7 Red Cell Distribution Width 12.6 Platelet Count 315 Mean Platelet Volume 9.2 Neutrophils % 60.9 Lymphocytes % 27.2 Monocytes % 10.0 Eosinophils % 0.9 Basophils % 0.8 Nucleated Red Blood Cells % 0.0 Neutrophils # 3.9 Lymphocytes # 1.7 Monocytes # 0.6 Eosinophils # 0.1 Basophils # 0.1 Nucleated Red Blood Cells # 0.0 Bedside Glucose 280 H Medications Current Medications Ondansetron HCl (Zofran Inj) 4 mg Q6H PRN IV NAUSEA AND/OR VOMITING; Start at 14:00 Acetaminophen (Tylenol Tab) 650 mg Q6H PRN PO PAIN LEVEL 1-3 OR FEVER; Start at 14:00 Acetaminophen (Tylenol Supp) 650 mg Q6H PRN [place] PAIN LEVEL 1-3 OR FEVER; Start 04/11/17 at 14:00 Morphine Sulfate (morphine) 2 mg Q4H PRN IV SEVERE PAIN LEVEL 7-10 Last administered on 04/12/17 08:26; Admin Dose 2 MG; Start 04/11/17 at 14:00 Docusate Sodium (Colace) 100 mg Q12H PRN PO CONSTIPATION Last administered on 03:38; Admin Dose 100 MG; Start 04/11/17 at 14:00 Enoxaparin Sodium (Lovenox) 40 mg DAILY SC ; Start 04/12/17 at 09:00 Atorvastatin Calcium (Lipitor) 40 mg QHS PO Last administered on 04/12/17 21: 06; Admin Dose 40 MG; Start 04/11/17 at 21:00 Benazepril HCl (Lotensin) 40 mg DAILY PO Last administered on 04/12/17 08:27; Admin Dose 40 MG; Start 04/12/17 at 09:00 Carvedilol (Coreg) 25 mg BID PO Last administered on 04/12/17 21:06; Admin Dose 25 MG; Start 04/11/17 at 21:00 Clopidogrel Bisulfate (plaVIX) 75 mg DAILY PO Last administered on 04/12/17 08 :34; Admin Dose 75 MG; Start 04/12/17 at 09:00 Hydrochlorothiazide (Hydrochlorothiazide) 12.5 mg DAILY PO Last administered on 04/12/17 08:28; Admin Dose 12.5 MG; Start 04/12/17 at 09:00 Diagnostic Test (Pha) (Accu-Chek) 1 ea 02 XX ; Start 04/12/17 at 02:00 Insulin Glargine (Lantus) 21 unit DAILY@08 SC Last administered on 04/12/17 08 :29; Admin Dose 21 UNIT; Start 04/12/17 at 08:00 Miscellaneous Information 1 ea NOTE XX ; Start 04/11/17 at 14:00 Glucose (Glutose) 15 gm Q15M PRN PO DECREASED GLUCOSE; Start 04/11/17 at 14:00 Glucose (Glutose) 22.5 gm Q15M PRN PO DECREASED GLUCOSE; Start 04/11/17 at 14: 00 Dextrose (D50w Syringe) 25 ml Q15M PRN IV DECREASED GLUCOSE; Start 04/11/17 at 14:00 Dextrose (D50w Syringe) 50 ml Q15M PRN IV DECREASED GLUCOSE; Start 04/11/17 at 14:00 Glucagon (Glucagen) 1 mg Q15M PRN IM DECREASED GLUCOSE; Start 04/11/17 at 14:00 Glucose (Glutose) 15 gm Q15M PRN BUCCAL DECREASED GLUCOSE; Start 04/11/17 at 14 :00 Hydralazine HCl (Apresoline) 10 mg Q6H PRN IV SBP>170; Start 04/11/17 at 14:00 Aspirin (Halfprin) 81 mg DAILY PO Last administered on 04/12/17 08:27; Admin Dose 81 MG; Start 04/12/17 at 09:00 Acetaminophen/ Hydrocodone Bitart ([place] (5/325)) 1 tab Q4H PRN PO pain Last administered on 04/12/17 17:27; Admin Dose 1 TAB; Start 04/12/17 at 11:00 Miscellaneous Information (* Miscellaneous Pharmacy Order) Hold all Metformin ... ONCE XX Last administered on 04/12/17 17:23; Admin Dose 1 EA; Start at 15:00; Stop 04/14/17 at 14:59 Assessment/Plan Chief Complaint/Hosp Course 1. ACS/ unstable angina: steph angio shows patent stent and moderate CAD. 2. HTN 3. DM 4. Dyslipidemia 5. hx CAD 6. HX PCI 7. leg pain: possible PAD REC: med therapy ASA/ PLAVIX CONT COREG AMMIE DM control echo REVIEWED. ok for dc from cardiac stand point. 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 THONG HUERTA MD [facility] Problems: THONG HUERTA MD Apr 13, 2017 08:23
[2017-04-13 08:25] VITALS: PULSE 82
[2017-04-13] MEDS: HYDROCHLOROTHIAZIDE 12.5 MG CAP PO SCH (08:25)
[2017-04-13] MEDS: INSULIN ASPART [NOVOLOG] 3 ML PEN SC SCH ×2 (08:29→08:30)
[2017-04-13] MEDS: INSULIN GLARGINE [LANtus] 3 ML PEN SC SCH (08:30)
[2017-04-13] MEDS: ENOXAPARIN 40 MG/0.4 ML SYG SC SCH (08:31)
[2017-04-13 08:47] LABS: CALCIUM 8.6 mg/dl (8.4-10.2); CREATININE 0.73 mg/dl (0.61-1.24); POTASSIUM 3.9 mmol/L (3.5-5.1)
--- NOTE | 2017-04-13 09:06 | PDOCDIS ---
Discharge Instructions CONDITION Patient Condition: Stable HOME CARE INSTRUCTIONS: Special Diet: carb controlled FOLLOW UP/APPOINTMENTS Follow-up Plan 1.Follow up with primary care physician in 1 week If you don't have one please let someone know, we can give you resources that may help you pick one. You may also call your insurance company to assign one to you. Review your medication list with your nurse before leaving and if you need new prescriptions please let your nurse know. I may have made changes to your home medications or given you new prescriptions, please let your primary doctor know as well. Stay compliant with your medications and report any side effects to your PCP or pharmacist. Return to the ER if you have any concerns and cannot reach your doctors or call your insurance company, they usually have a nurse that can help you. 2. Call 911 or go to the nearest emergency room if experiencing loss of consciousness, dizziness, chest pain, shortness of breath, vomiting/abdominal pain, speech difficulties, motor weakness or any unusual symptoms. 3.Follow-up with outpatient compressor mechanic in 1 week ANUPAMA SANTAMARIA NP Apr 13, 2017 09:06
[2017-04-13] MEDS ORDERED: METF-480 PO (09:13)
[2017-04-13] MEDS ORDERED: LANT3I SC (09:13)
[2017-04-13] MEDS ORDERED: ASPI-664 PO (09:13)
[2017-04-13] MEDS ORDERED: NOVO3I SC (09:13)
[2017-04-13] MEDS ORDERED: GLIM4TAB PO (09:13)
[2017-04-13] MEDS ORDERED: MTF1000T PO (09:17)
--- NOTE | 2017-04-13 09:28 | DS ---
Date/Time of Note Date/Time of Note DATE: 04/13/17 TIME: 09:24 Discharge Summary Admission/Discharge Info Admit Date/Time Apr 11, 2017 at 11:51 Discharge Date/Time Discharge Diagnosis 1. ACS/ unstable angina: Status post [facility] on 04/12/2017 with patent stent and moderate CAD. 2. HTN 3. DMII 4. Dyslipidemia 5. CAD, status post PCI 6. Psychiatric illness. Patient Condition: Stable Consults ,cards Procedures 04/12/2017. Procedure performed: 1. Left heart catheterization, selective right and left coronary angiogram 2. right femoral angiogram Hospital Course This is a 61-year-old male with a past medical history of myocardial infarction, PCI with stent placed less than 1 year ago, type 2 diabetes, coronary artery disease, dyslipidemia, hypertension, who presented to the emergency room with complaints of intermittent left-sided exertion chest painX 4 days duration. Initial troponin was negative.A 12-lead EKG with sinus rhythm and nonspecific ST/T-wave changes. There was no acute ST elevation or T-wave changes. Patient was given spirin 324 mg and Toradol 50 mgand was admitted for further evaluation. He was resumed on his home medications for underlying diabetes, dyslipidemia, coronary artery disease and hypertension. Patient was evaluated by certified nurse operating room. His serial troponin 3 was negative. 12-lead EKG without any acute ischemic events. 2D echocardiogram with ejection fraction 50%. On 2016, patient had undergone left heart catheterization due to his high risk factors. Patient was noted with 10% stenosis in the proximal stent, and 60-70% stenosis of the mid LAD (FFR was 0.81-0.90 which was is not considered hemodynamically significant lesion). He was then taken back to the floor without any PCI. Patient did not have any further chest pain. During the course of hospitalization, patient was noted with nonadherence to his diet regimen which was causing hyperglycemia. Therefore, he was given diabetic education. Patient's A1c was 10.7. He was recommended to start metformin 1000 mg twice daily, glimepiride 4 mg before meals breakfast, Lantus 21 units daily, pre-meal insulin 7 units 3 times daily upon discharge. Patient verbalized discharge instructions. Disposition: Patient will be discharged home with outpatient follow-up. He was instructed to follow-up with his primary care and certified nurse operating room in 1 week. Patient was given education on diet regimen and insulin regimen. Approximately 60 minutes was spent in coordinating the discharge on this patient. Patient was seen in collaboration with . Home Meds Active Scripts Metformin* (Glucophage*) 1,000 Mg Tablet, 1000 MG PO WITH BREAKFAST DINNE, #60 TAB Prov:SANTAMARIA,ANUPAMA V. [employer]ESM[employer] 04/13/17 Insulin Glargine* (Lantus*) 100 Unit/Ml Soln, 21 UNIT SC QHS, #1 VIAL Prov:SANTAMARIA,ANUPAMA V. [employer] SALESMAN 04/13/17 Insulin Aspart* (Novolog Insulin Pen*) 100 Unit/Ml Soln, 7 UNIT SC WITH MEALS, # 1 VIAL Prov:SANTAMARIA,ANUPAMA V. [employer] SALESMAN 04/13/17 Aspirin* (Aspirin* EC) 81 Mg Tablet.dr, 81 MG PO DAILY, #30 TAB Prov:SANTAMARIA,ANUPAMA V. [employer] SALESMAN 04/13/17 Glimepiride* (Glimepiride*) 4 Mg Tablet, 4 MG PO AC BREAKFAST, #30 TAB Prov:SANTAMARIA,ANUPAMA V. [employer] SALESMAN 04/13/17 Reported Medications Insulin Lispro (Humalog) 100 Unit/1 Ml Cartridge, 7 UNIT SQ AC MEALS, #1 SYR 04/11/17 Carvedilol* (Coreg*) 25 Mg Tablet, 25 MG PO BID, #60 TAB 04/11/17 Pantoprazole* (Pantoprazole*) 40 Mg Tablet.dr, 40 MG PO AC BREAKFAST, TAB 04/11/17 Hydrochlorothiazide* (Hydrochlorothiazide*) 12.5 Mg Tablet, 12.5 MG PO DAILY, # 30 TAB 04/11/17 Atorvastatin* (Atorvastatin*) 40 Mg Tablet, 40 MG PO QHS, #30 TAB 04/11/17 Clopidogrel Bisulfate (Clopidogrel) 75 Mg Tablet, 75 MG PO DAILY, #30 TAB 04/11/17 Amitriptyline Hcl* (Amitriptyline Hcl*) 10 Mg Tablet, 10 MG PO QHS, #30 TAB 04/11/17 Benazepril Hcl* (Benazepril Hcl*) 40 Mg Tablet, 40 MG PO DAILY, #30 TAB 04/11/17 Discontinued Reported Medications Insulin Glargine* (Lantus*) 100 Unit/Ml Soln, 0-25 UNIT SC QHS, #1 VIAL 04/11/17 Discontinued Scripts Metformin* (Glucophage*) 850 Mg Tablet, 1000 MG PO BID WITH MEALS, #60 TAB Prov:ANUPAMA SANTAMARIA Thompson MUSE 04/13/17 Follow-up Plan 1.Follow up with primary care physician in 1 week If you don't have one please let someone know, we can give you resources that may help you pick one. You may also call your insurance company to assign one to you. Review your medication list with your nurse before leaving and if you need new prescriptions please let your nurse know. I may have made changes to your home medications or given you new prescriptions, please let your primary doctor know as well. Stay compliant with your medications and report any side effects to your PCP or pharmacist. Return to the ER if you have any concerns and cannot reach your doctors or call your insurance company, they usually have a nurse that can help you. 2. Call 911 or go to the nearest emergency room if experiencing loss of consciousness, dizziness, chest pain, shortness of breath, vomiting/abdominal pain, speech difficulties, motor weakness or any unusual symptoms. 3.Follow-up with outpatient certified nurse operating room in 1 week Primary Care Provider Care Physician No Primary Pending Labs Laboratory Tests Test 04/12/17 11:51 04/12/17 17:33 04/12/17 20:07 04/13/17 01:30 Bedside Glucose 161mg/dL (70-220) 140mg/dL (70-220) 285mg/dL (70-220) 304mg/dL (70-220) Test 04/13/17 07:28 04/13/17 08:00 White Blood Count 6.310^3/ul (4.8-10.8) Red Blood Count 4.6010^6/ul (4.70-6.10) Hemoglobin 13.1g/dl (14.0-18.0) Hematocrit 38.9% (42.0-52.0) Mean Corpuscular Volume 84.6fl (82.0-101.0) Mean Corpuscular Hemoglobin 28.5pg (29.0-33.0) Mean Corpuscular Hemoglobin Concent 33.7g/dl (32.0-37.0) Red Cell Distribution Width 12.6% (11.5-14.5) Platelet Count 10684^3/UL (140-415) Mean Platelet Volume 9.2fl (7.4-10.4) Neutrophils % 60.9% (39.0-77.0) Lymphocytes % 27.2% (15.0-51.0) Monocytes % 10.0% (0.0-11.0) Eosinophils % 0.9% (0.0-7.0) Basophils % 0.8% (0.0-2.0) Nucleated Red Blood Cells % 0.0/100WBC (0.0-0.0) Neutrophils # 3.910^3/ul (1.6-7.5) Lymphocytes # 1.710^3/ul (0.8-2.9) Monocytes # 0.610^3/ul (0.3-0.9) Eosinophils # 0.110^3/ul (0.0-0.5) Basophils # 0.110^3/ul (0.0-0.1) Nucleated Red Blood Cells # 0.010^3/ul (0.0-0.0) Sodium Level 138mmol/L (135-144) Potassium Level 3.9mmol/L (3.5-5.1) Chloride Level 105mmol/L (97-110) Carbon Dioxide Level 24mmol/L (21-31) Anion Gap 13 (8-16) Blood Urea Nitrogen 14mg/dl (7-20) Creatinine 0.73mg/dl (0.61-1.24) Glucose Level 257mg/dl (70-220) Calcium Level 8.6mg/dl (8.4-10.2) Bedside Glucose 280mg/dL (70-220) ANUPAMA SANTAMARIA NP Apr 13, 2017 09:28
--- NOTE | 2017-04-13 16:10 | RADRPT ---
Vent Rate: 80 bpm RR Interval: 0 msec [place] Interval: 184 msec QRS Duration: 86 msec QT Interval: 380 msec QTC Interval: 438 msec P-R-T [place]: 55 - 3 - 180 degrees Normal sinus rhythm Septal infarct , age undetermined T wave abnormality, consider lateral ischemia Abnormal ECG Electronically Signed By: Silverio Olmedo [id number]
== END 2017-04-13 11:50 | disposition home or self-care (01) | DRG 287 ==
LOC: E/R 09:26 → TEL 11:51
PROVIDERS: ADMIT Internal Medicine; ATTEND Internal Medicine
PROC: B211YZZ Fluoroscopy of Multiple Coronary Arteries using Other Contrast (ICD-10-PCS; 2017-04-12)
PROC: B215YZZ Fluoroscopy of Left Heart using Other Contrast (ICD-10-PCS; 2017-04-12)
PROC: 4A033BC Measurement of Arterial Pressure, Coronary, Percutaneous Approach (ICD-10-PCS; 2017-04-12)
PROC: 4A023N7 Measurement of Cardiac Sampling and Pressure, Left Heart, Percutaneous Approach (ICD-10-PCS; principal; 2017-04-12 13:00)
DX: I25.110 Atherosclerotic heart disease of native coronary artery with unstable angina pectoris (principal); E11.65 Type 2 diabetes mellitus with hyperglycemia; I10 Essential (primary) hypertension; E78.5 Hyperlipidemia, unspecified; K21.9 Gastro-esophageal reflux disease without esophagitis; R07.9 Chest pain, unspecified; I25.2 Old myocardial infarction; Z79.4 Long term (current) use of insulin; Z79.82 Long term (current) use of aspirin; Z87.891 Personal history of nicotine dependence; Z95.5 Presence of coronary angioplasty implant and graft
CPT/HCPCS: 36415; 71010; 80048; 80053; 80061; 82550; 82553; 82962; 83036; 83690; 83735; 83880; 84100; 84443; 84484; 85025; 93005; 93306; 93458; 93571; 96374; C1887; C1894; J0153; J0360; J1644; J1650; J1815; J1885; J2250; J2270; J3010; J7030; Q9967